=== PATIENT | male | born 2000 | race Caucasian/White ===

== ENCOUNTER 2023-06-19 11:12 | Emergency (ER) | payer SELFPAY ==
[2023-06-19 11:45] LABS: HEMATOCRIT 44.7 % (42.0-52.0); MEAN CORPUSCULAR HEMOGLOBIN 32.3 pg (28.0-32.0); MEAN CORPUSCULAR HGB CONC 35.8 g/dL (32.0-36.0); MEAN CORPUSCULAR VOLUME 90.1 fL (83.0-99.0); PLATELET COUNT,PLT 289 K/uL (150-400); RED BLOOD CELL COUNT 4.96 M/uL (4.52-5.90); WHITE BLOOD CELL COUNT,WBC 14.88 K/uL (3.9-11.3)
[2023-06-19 12:06] LABS: A/G RATIO 1.4 (0.9-1.6); ALANINE AMINOTRANSFERASE,ALT 39 IU/L (14-63); ALBUMIN 4.9 g/dL (3.4-5.0); ALKALINE PHOSPHATASE 101 U/L (46-116); ASPARTATE AMNIOTRANSFERASE,AST 21 IU/L (15-37); BILIRUBIN TOTAL 1.1 mg/dL (0.2-1.0); BLOOD UREA NITROGEN,BUN 13 mg/dL (7.0-18.0); CALCIUM 9.5 mg/dL (8.5-10.1); CARBON DIOXIDE,CO2 31.4 mmol/L (21.0-32.0); CHLORIDE,CL 102 mmol/L (98-107); CREATININE 1.1 mg/dL (0.8-1.3); GLUCOSE RANDOM 105 mg/dL (74-106); POTASSIUM,K 4.6 mmol/L (3.5-5.1); PROTEIN TOTAL,TP 8.3 g/dL (6.4-8.2); SODIUM,NA 141 mmol/L (136-148)
[2023-06-19 12:13] LABS: ESTIMATED GFR 97 mL/min (>60)
[2023-06-19] MEDS ORDERED: Sodium Chloride 0.9% 1,000 ML IV ONE (12:25)
[2023-06-19] MEDS ORDERED: Ondansetron 4 MG/2 ML SDV IVPUSH ONE (12:25)
[2023-06-19] MEDS ORDERED: Morphine 4 MG/ML Syringe IVPUSH ONE (12:26)
[2023-06-19 12:35] LABS: LYMPHOCYTES ABSOLUTE MAN 2.4 (0.6-2.4); LYMPHOCYTES PERCENT MAN 16 % (16.0-40.0); MONOCYTES ABSOLUTE MAN 1.5 (0.0-0.8); MONOCYTES PERCENT MAN 10 % (0.0-15.0); SEG NEUTROPHILS PERCENT MAN 74 % (48.0-80.0)
[2023-06-19] MEDS ORDERED: Iopamidol 755 Mg/ML 100 ML Bottle IVPUSH ONE (13:49)
[2023-06-19] MEDS ORDERED: Dicyclomine 10 MG Cap PO ONE (14:06)
[2023-06-19 15:16] LABS: APPEARANCE,URINE CLEAR; BILIRUBIN,URINE NEGATIVE (NEGATIVE); COLOR,URINE YELLOW; GLUCOSE,URINE NEGATIVE (NEGATIVE); KETONES,URINE 15 mg/dL (NEGATIVE); LEUKOCYTE ESTERASE,URINE NEGATIVE (NEGATIVE); NITRITE,URINE NEGATIVE (NEGATIVE); OCCULT BLOOD,URINE NEGATIVE (NEGATIVE); PROTEIN,URINE NEGATIVE (NEGATIVE); UROBILINOGEN,URINE 0.2 EU/dL (<2.0)
== END 2023-06-19 16:14 | disposition home or self-care (01) ==
LOC: MW.ED 11:12
DX: R10.32 Left lower quadrant pain (principal)
CPT/HCPCS: 36415; 74177; 80053; 81003; 85025; 96361; 96374; 96375; 99284; A9270; J2270; J2405; J7030; Q9967